=== PATIENT | female | born 1930 | race Caucasian/White ===

== ENCOUNTER → 2016-12-21 | Outpatient (CLI) | payer MEDICARE, OTHER ==
[~2016-12-21] MED LIST: ASPI-558 PO; CALC600T2 PO; ENAL5TAB85 PO; GEMF600T61 PO; MULT-934 PO; POTA99TA9 PO
== END ==
LOC: WC.BC 12:45
DX: Z12.31 Encounter for screening mammogram for malignant neoplasm of breast (principal)
CPT/HCPCS: 77063; G0202